=== PATIENT | male | born 1975 | race Caucasian/White ===

== ENCOUNTER 2016-12-27 15:36 | Emergency (ER) | payer MEDICAID ==
[2016-12-27 15:43] VITALS: TEMP 97.5
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
[2016-12-27] MEDS ORDERED: fentaNYL 100 MCG/2 ML INJ IVP ONE (15:58)
[2016-12-27] MEDS ORDERED: DIAZEPAM 10 MG/2 ML SYR IVP ONE (15:58)
[2016-12-27] MEDS ORDERED: KETOROLAC 15 MG/1 ML SDV IVP ONE (15:59)
--- NOTE | 2016-12-27 16:00 | CPEKG ---
Heart Rate: 77 RR Interval: 779 P-R Interval: 156 QRSD Interval: 70 QT Interval: 400 QTC Interval: 453 P [place]: 42 QRS [place]: 12 T Wave [place]: 41 EKG Severity - NORMAL ECG - EKG Impression: SINUS RHYTHM Electronically Signed By: Jasmine Whittington 27-Dec-2016 20:20:53
[2016-12-27 16:08] LABS: % IMMATURE GRANULYOCYTES 0.5 % (0.0-1.1); ABSOLUTE IMMATURE GRANULOCYTES 0.03 10^3/uL (0.00-0.10); ADD DIFF? NO; ADD MORPH? NO; ADD SCAN? NO; ATYPICAL LYMPHOCYTE FLAG 10 (0-99); FRAGMENT RBC FLAG 0 (0-99); LEFT SHIFT FLG 0 (0-99); LIPEMIA HEMOLYSIS FLAG 90 (0-99); MEAN CELL HEMOGLOBIN 30.7 pg (27.9-34.1); MEAN CELL HEMOGLOBIN CONCENTR. 34.1 g/dL (32.4-36.7); MEAN PLATELET VOLUME 10.3 fL (8.7-11.7); PLATELET CLUMPS FLAG 0 (0-99); PLATELET COUNT 250 10^3/uL (150-400); RED BLOOD CELL COUNT 4.89 10^6/uL (4.40-6.38); RED CELL DISTRIBUTION WIDTH 13.1 % (11.5-15.2)
[2016-12-27 16:11] LABS: ANION GAP 10 mEq/L (8-16); CALCIUM 9.2 mg/dL (8.5-10.4); CARBON DIOXIDE 25 mEq/l (22-31); CHLORIDE 105 mEq/L (97-110); CREATININE 1.4 mg/dL (0.7-1.3); GLOMERULAR FILTRATION RATE 55; GLUCOSE 122 mg/dL (70-100); SODIUM 140 mEq/L (134-144)
[2016-12-27 16:23] LABS: TROPONIN I < 0.012 ng/mL (0.000-0.034)
[2016-12-27] MEDS ORDERED: HYDROmorphONE/DILAUDID 1 MG/ML INJ IVP ONE (17:54)
[2016-12-27 18:38] VITALS: RESP 18
[2016-12-27] MEDS ORDERED: DIAZEPAM 5 MG PREPACK#4 BTL TAKEHOME ONE (19:00)
[2016-12-27 19:09] VITALS: BP 118/80; PULSE 69; O2SAT 97
== END 2016-12-27 19:09 | disposition home or self-care (01) ==
DX: G89.18 Other acute postprocedural pain (principal); M54.2 Cervicalgia; M62.838 Other muscle spasm
CPT/HCPCS: 96374; J1170; J1885; J3010